=== PATIENT | female | born 1990 | race African-American/Black ===

== ENCOUNTER 2018-10-28 15:22 | Emergency (ER) | payer OTHER ==
[~2018-10-28] VITALS: Ht 170.2 cm; Wt 81.7 kg
[2018-10-28 15:41] VITALS: BP 125/71
[2018-10-28] MEDS ORDERED: MOBIC7.5 MG PO (15:57)
== END 2018-10-28 16:20 | disposition home or self-care (01) ==
LOC: ER 15:22
DX: M54.5 Low back pain (principal); W01.0XXA Fall on same level from slipping, tripping and stumbling without subsequent striking against object, initial encounter; Y92.89 Other specified places as the place of occurrence of the external cause; Y93.E5 Activity, floor mopping and cleaning; Y99.8 Other external cause status

== ENCOUNTER 2019-02-18 18:14 | Emergency (ER) | payer OTHER ==
[~2019-02-18] VITALS: Ht 170.2 cm; Wt 81.7 kg
[~2019-02-18 18:14] MED LIST: MOBIC7.5 MG PO
[2019-02-18] MEDS ORDERED: NORFLEX100 MG PO (19:00)
[2019-02-18] MEDS ORDERED: PREDNISONE 10 M10 MG PO (19:00)
[2019-02-18 19:07] VITALS: BP 100/74
== END 2019-02-18 19:14 | disposition home or self-care (01) ==
LOC: ER 18:14
DX: S39.012A Strain of muscle, fascia and tendon of lower back, initial encounter (principal); M54.16 Radiculopathy, lumbar region; W18.39XA Other fall on same level, initial encounter; Y92.89 Other specified places as the place of occurrence of the external cause; Y93.89 Activity, other specified; Y99.8 Other external cause status